=== PATIENT | female | born 1935 | race Caucasian/White ===

== ENCOUNTER → 2016-04-24 | Outpatient (CLI) | payer MEDICARE, OTHER | LOC: GMAB 10:56 | PROVIDERS: ATTEND Family Medicine | DX: I10 Essential (primary) hypertension (principal); R30.0 Dysuria ==

== ENCOUNTER → 2016-04-28 | Outpatient (CLI) | payer MEDICARE, OTHER ==
--- NOTE | 2016-04-28 15:07 | MAM ---
EXAM DESCRIPTION: MAMMO BREAST SCREENING BILATERAL CAD, images were reviewed with CAD technology, R2 computer-aided detection. CLINICAL HISTORY: [facility]. COMPARISON: No prior study is currently available. FINDINGS: Routine views are obtained. Scattered glandular parenchymal pattern. No dominant mass, architectural distortion or clustered microcalcification period. IMPRESSION: Benign exam. BIRAD CATEGORY: 2 BENIGN RECOMMENDATIONS: FOLLOW-UP: Routine screening mammogram in one year. According to the [employer], yearly mammograms are recommended starting at age 40 and continuing as long as a woman is in good health. Any breast change noted on a breast self-exam should be reported promptly to the patient's healthcare provider. Breast MRI is recommended for women with an approximately 20-25% or greater lifetime risk of breast cancer, including women with a strong family history of breast or ovarian cancer and women who have been treated for Hodgkin's disease. Electronically signed by: Janina Gale 04/28/2016 15:05
== END ==
LOC: MAMMO 10:57
PROVIDERS: ATTEND Family Medicine
DX: Z12.31 Encounter for screening mammogram for malignant neoplasm of breast (principal)
CPT/HCPCS: 77052; G0202

== ENCOUNTER → 2017-05-19 | Outpatient (CLI) | payer MEDICARE, OTHER | LOC: GMAB 10:51 | PROVIDERS: ATTEND Family Medicine | DX: I10 Essential (primary) hypertension (principal) ==

== ENCOUNTER → 2018-05-20 | Outpatient (CLI) | payer MEDICARE, OTHER | LOC: GMAE 10:40 | PROVIDERS: ATTEND Family Medicine | DX: I10 Essential (primary) hypertension (principal) ==